=== PATIENT | female | born 1955 | race Caucasian/White ===

== ENCOUNTER 2016-09-09 16:04 | Emergency (ER) | payer SELFPAY ==
[2016-09-09 18:51] LABS: BASOPHIL % 0.4 % (0-2)
[2016-09-09 18:58] LABS: CALCIUM 8.5 mg/dL (8.5-10.1); CARBON DIOXIDE 24.2 mmol/L (21-32); CHLORIDE SERUM 105 mmol/L (98-107); CREATININE SERUM 0.5 mg/dL (0.6-1.0); GFR1 > 60 mL/min; GLUCOSE SERUM 132 mg/dL (74-106); POTASSIUM SERUM 3.5 mmol/L (3.5-5.1); SODIUM SERUM 140 mmol/L (136-145)
[2016-09-09 19:02] LABS: PLATELET COUNT 82 x10^3mcL (130-400)
[2016-09-09 19:03] LABS: ALKALINE PHOSPHATASE 95 U/L (46-116); ALT/SGPT 57 U/L (14-59); AST/SGOT 56 U/L (15-37); BILIRUBIN TOTAL 1.67 mg/dL (0.20-1.00); TOTAL PROTEIN, SERUM 7.8 g/dL (6.4-8.2)
[2016-09-09 19:05] LABS: ALBUMIN 3.1 g/dL (3.4-5.0)
[2016-09-09 20:20] VITALS: BP 125/72
== END 2016-09-09 20:20 | disposition home or self-care (01) ==
LOC: ED 16:04
PROVIDERS: Emergency Medicine Emergency Medical Services
DX: E11.9 Type 2 diabetes mellitus without complications (principal); I10 Essential (primary) hypertension; Z79.84 Long term (current) use of oral hypoglycemic drugs; Z88.8 Allergy status to other drugs, medicaments and biological substances
CPT/HCPCS: 36415; 82962; 83880; Q0092